=== PATIENT | female | born 1960 | race Caucasian/White ===

== ENCOUNTER → 2016-12-17 | Outpatient (CLI) | payer MEDICARE, OTHER ==
[~2016-12-17] MED LIST: ALBUTEROL17 GM INH; AMITRIPTYLINE H25 MG PO; AMITRYPTYLINE PO; ANTIBIOTIC; ASPIRIN ENTERI325 M1; ASPIRIN325 M1 PO; ASPIRIN81 MG PO; BACLOFEN10 MG PO; BACTRIM DS TABL1 TA1 PO; BACTRIM DS TABL1 TAB PO; BUSPAR15 M2 DOB; CELEXA PO; CENTRUM PO; CERTAGEN PO; CIPRO PO; CITALOPRAM HBR40 MG PO; CLEOCIN HCL300 M1 PO; CLEOCIN PO; CLOPIDOGREL75 MG PO; COATED ASPIRIN325 M1 PO; COUMADIN PO; COUMADIN3 MG PO; DESYREL100 MG PO; DESYREL50 MG PO; DILAUDID2 MG PO; DOCUSATE SODIU100 MG PO; FIORICET W/CODE1 CAP PO; GABAPENTIN800 MG PO; GLUCOTROL PO; HYDROCODON-ACE1 EAC1 PO; HYDROCODON-ACE1 EAC5 PO; HYDROCODON-ACE1 EAC7 PO; HYDROCODONE-APA1 T43 PO; ILOTYCIN1 GM OD; INDERAL20 MG PO; K-DUR10 MEQ PO; K-DUR20 ME1 PO; KEFLEX500 M1 PO; KEFLEX500 MG PO; KLONOPIN PO; KLONOPIN1 MG PO; LEVAQUIN PO; LIORESAL10 MG PO; LOPRESSOR PO; LORTAB 10/500 T1 TAB PO; LORTAB 5/500 TA1 TA1 PO; LORTAB 7.5-5001 TAB PO; MICARDIS PO; MIRTAZAPINE30 M1 PO; MOBIC15 MG PO; MUCINEX DM1 TAB.SR . PO; MULTI VITAMIN1 EACH PO; NEUPRO1 EAC1 TD; NEURONTIN PO; NEURONTIN100 MG PO; NON-ASPIRIN PA325 M1 PO; NORCO 5/325 TAB1 TAB PO; NORCO 7.5/325 T1 TAB PO; NOVOLOG MI100 UNIT/1 SUBQ; OMEPRAZOLE40 MG PO; PERCOCET10 PO; PHENERGAN PO; PHENERGAN25 MG PO; PLAVIX PO; POLYTRIM EYE DR10 ML OP; POTASSIUM CHLO10 ME1 PO; PRAVACHOL PO; PRAVACHOL20 MG PO; PRAVASTATIN SOD20 MG PO; PRAVASTATIN SOD40 MG PO; PREDNISONE PO; PRILOSEC PO; PRILOSEC20 M1 PO; PRILOSEC20 MG DOB; PRILOSEC20 MG PO; PROAIR HFA8.5 GM IH; PROPRANOLOL HCL10 MG PO; PROPRANOLOL HCL20 MG PO; PROPRANOLOL PO; PROTONIX PO; REQUIP1 MG PO; SERTRALINE HCL100 M1 PO; SINUS & ALLERG1 EACH PO; SINUS & ALLERG120 MG PO; TIZANIDINE HCL2 M1 PO; TIZANIDINE HCL2 MG PO; TOPAMAX25 MG PO; TRAMADOL HCL50 M1 PO; TRAZODONE HCL100 MG PO; TRAZODONE PO; ULTRAM PO; VICODIN 5/500 T1 TAB PO; ZANAFLEX PO; ZANAFLEX2 M1 PO; ZANAFLEX2 MG PO; ZANAFLEX4 M1 PO
--- NOTE | ~2016-12-17 | US37 ---
[facility] A Service of [facility] RADIOLOGY TEXT RESULTS PATIENT: JULISSA WALLACE LOCATION: CNIV : 64 UNIT #: [id number] AGE: [address]: Andre Ansari MD SEX: F ORDER DR: [id number] [facility] [address] [place], [place] [address] [id number] O MR#: [id number] Acc #: [id number] NAME: JULISSA WALLACE. : 1960 SEX: F STUDY DATE/TIME: 12/17/2016 10:17 UNIT: CNIV ROOM: STUDY DESCRIPTION: US Carotid W/Doppler Bilateral Attending Physician: Andre Ansari M.D. Referring Physician: Andre Ansari M.D. Ordering Physician: Andre Ansari M.D. Primary Care Physician: Mason Galdamez M.D. MEDICAL IMAGING REPORT This report is preliminary unless electronic signature is present EXAM Bilateral carotid duplex HISTORY CVA 2012. Slurred speech. FINDINGS Duplex imaging of the carotid arteries was performed. The right common carotid artery is patent. Soft plaque is seen throughout the common carotid artery. Plaque extends into the right internal and external carotid arteries. Velocity in the right common carotid is 156, internal is 131 proximally, 175 mid portion and 130 distally. External is 30 cm/sec. Right ICA:CCA ratio is 1.1. On the left side, common carotid artery is patent. Mild plaque is seen in the left internal carotid artery at the origin. Velocity in the left common carotid is 125, internal is 76 and external is 235 cm/sec. Left internal carotid artery is tortuous. Left ICA:CCA ratio is 1.0. Antegrade flow is seen in the right vertebral artery and retrograde flow is seen in the left vertebral artery. IMPRESSION 1. Plaque with increased velocities indicating 50% to 69% stenosis is seen in the right mid internal carotid artery. 2. Plaque with less than 50% stenosis is seen in the left internal carotid artery. 3. Antegrade flow is seen in the right vertebral artery and retrograde flow is seen in the left vertebral artery. [facility] A Service of [facility] RADIOLOGY TEXT RESULTS PATIENT: JULISSA WALLACE LOCATION: CNIV : 64 UNIT #: [id number] AGE: [address]: Andre Ansari MD SEX: F ORDER DR: Dictated by... Seth Lozoya M.D. THIS IS AN ELECTRONICALLY VERIFIED REPORT Seth Lozoya M.D. at 12/18/2016 7:15 AM Shaunna TD: 12/18/2016 06:51 JOB #: [id number] MEDICAL IMAGING REPORT Page 1 of 1 COPY
== END | disposition home or self-care (01) ==
LOC: CNIV 09:53
DX: M54.9 Dorsalgia, unspecified (principal); I65.23 Occlusion and stenosis of bilateral carotid arteries
CPT/HCPCS: 93880

== ENCOUNTER 2017-01-17 06:20 | Emergency (ER) | payer MEDICARE, OTHER ==
[~2017-01-17] VITALS: Ht 152.4 cm; Wt 76.2 kg
--- NOTE | ~2017-01-17 | CT2 ---
[facility] A Service of [facility] RADIOLOGY TEXT RESULTS PATIENT: JULISSA WALLACE LOCATION: SED : 64 UNIT #: [id number] AGE: [address]: Sreedhar Braden MD SEX: F ORDER DR: [id number] [place] [id number] E MR#: [id number] Acc #: [id number] NAME: JULISSA WALLACE. : 1960 SEX: F STUDY DATE/TIME: 01/17/2017 9:11 UNIT: SED ROOM: STUDY DESCRIPTION: CT Abd and Pelv W Cont Attending Physician: Sreedhar Braden M.D. Ordering Physician: Sreedhar Braden M.D. Primary Care Physician: Mason Galdamez M.D. MEDICAL IMAGING REPORT This report is preliminary unless electronic signature is present. EXAM Abdomen and pelvis CT with contrast HISTORY Upper abdominal pain beginning 1 day ago accompanied by constipation. TECHNIQUE Axial images were obtained with intravenous contrast. 100 mL of Isovue was used. This CT exam was performed with one or more of the following radiation dose reduction techniques: automatic exposure control, adjustment of mA and/or kV according to patient size, and iterative reconstruction. COMPARISON Comparison scan 09/23/2015 FINDINGS In the lung bases, there is mild volume loss seen in the right middle lobe and lingula. In the abdomen, no significant upper abdominal solid organ abnormalities are seen. There is no evidence of retroperitoneal adenopathy or ascites, and no distended bowel loops are seen. The appendix is normal. Increased stool is seen throughout the colon consistent with constipation. No distended small bowel loops are seen. In the pelvis, there is no evidence of adenopathy, mass or fluid collection. IMPRESSION 1. Mild volume loss, right middle lobe and lingula, adjacent to the mediastinum, likely from chronic atelectasis. 2. Increase stool burden. [facility] A Service of [facility] RADIOLOGY TEXT RESULTS PATIENT: JULISSA WALLACE LOCATION: SED : 64 UNIT #: [id number] AGE: [address]: Sreedhar Braden MD SEX: F ORDER DR: 3. No acute or inflammatory changes are seen in the abdomen or pelvis. Dictated by... Dimas Isidro M.D. THIS IS AN ELECTRONICALLY VERIFIED REPORT Dimas Isidro M.D. at 01/17/2017 4:10 PM LAURA/dhaval TD: 01/17/2017 13:46 JOB #: [id number] MEDICAL IMAGING REPORT Page 1 of 1
[~2017-01-17 06:20] MED LIST changes: -ASPIRIN81 MG PO; -BACLOFEN10 MG PO; -DESYREL50 MG PO; -GABAPENTIN800 MG PO; -NEUPRO1 EAC1 TD
[2017-01-17] MEDS ORDERED: BACLOFEN10 MG PO (06:31)
[2017-01-17] MEDS ORDERED: GABAPENTIN800 MG PO (06:31)
[2017-01-17] MEDS ORDERED: DESYREL50 MG PO (06:31)
[2017-01-17] MEDS ORDERED: ASPIRIN81 MG PO (06:32)
[2017-01-17] MEDS ORDERED: CENTRUM PO (06:32)
[2017-01-17] MEDS ORDERED: NEUPRO1 EAC1 TD (06:32)
[2017-01-17 07:25] LABS: URINE SOURCE CLEAN CATCH
[2017-01-17 07:28] LABS: MICRO INDICATED? NO; URINE APPEARANCE CLEAR; URINE BILIRUBIN NEG (NEG); URINE BLOOD NEG (NEG); URINE COLOR YELLOW; URINE GLUCOSE 300 MG/DL (NORM); URINE KETONE NEG (NEG); URINE LEUKOCYTE ESTERASE NEG (NEG); URINE NITRATE NEG (NEG); URINE PROTEIN NEG (NEG); URINE SPECIFIC GRAVITY <=1.005 (1.003-1.035); URINE UROBILINOGEN 0.2 MG/DL (NORM)
[2017-01-17 08:21] LABS: BASOPHIL# 0.1 X10e3 (0-0.3); BASOPHIL% 0.8 % (0-2.5); EOSINOPHIL# 0.2 X10e3 (0-0.7); EOSINOPHIL% 1.4 % (0.0-7.0); HEMATOCRIT 44.3 % (35.0-45.0); HEMOGLOBIN 14.8 gm/dL (12.0-16.0); LYMPHOCYTE# 3.3 X10e3 (1.0-3.5); LYMPHOCYTE% 22.4 % (17.0-45.0); MEAN CELL VOLUME 82.8 FL (83-96); MEAN CORPUSCULAR HEMOGLOBIN 27.8 PG (28-34); MEAN CORPUSCULAR HGB CONC 33.6 g/dL (30-36); MEAN PLATELET VOLUME 8.5 FL (6.5-11.5); MONOCYTE% 6.7 % (3.0-12.0); NEUTROPHIL# 10.1 X10e3 (1.5-7.1); NEUTROPHIL% 68.7 % (40-75); PLATELET COUNT 225 X10e3 (140-420); RED BLOOD COUNT 5.34 X10e (3.90-5.30); RED CELL DISTRIBUTION WIDTH 12.9 % (11.0-15.5); WHITE BLOOD COUNT 14.7 X10e3 (4.0-10.5)
[2017-01-17 08:24] LABS: DIFF IND NO
[2017-01-17 08:37] LABS: ALBUMIN SERUM 4.4 g/dL (3.5-5.0); BILIRUBIN,TOTAL 0.4 mg/dL (0.2-2.0); CALCIUM SERUM 9.1 mg/dL (8.4-10.2); CREATININE SERUM 0.6 mg/dL (0.6-1.4); GLOM FILT RATE Estimated 103.3 mL/min (>60); PROTEIN TOTAL SERUM 7.5 g/dL (6.0-8.3)
== END 2017-01-17 10:45 | disposition home or self-care (01) ==
LOC: SED 06:20
PROVIDERS: Emergency Medicine
DX: K59.00 Constipation, unspecified (principal); R73.9 Hyperglycemia, unspecified; F32.9 Major depressive disorder, single episode, unspecified; K21.9 Gastro-esophageal reflux disease without esophagitis; Z91.040 Latex allergy status; Z79.899 Other long term (current) drug therapy; Z79.01 Long term (current) use of anticoagulants; Z79.82 Long term (current) use of aspirin
CPT/HCPCS: 36415; 74177; 80053; 81003; 82947; 83690; 85025; 96361; 96374; 96375; 99284; J2405; Q9967